=== PATIENT | female | born 1985 | race Caucasian/White ===

== ENCOUNTER → 2018-01-25 | Outpatient (CLI) | payer OTHER ==
[2018-01-25 08:41] LABS: GLUCOSE, FASTING 93 MG/DL (LESS THAN 95)
[2018-01-25 09:40] LABS: 1 HR GLUCOSE 186 MG/DL (LESS THAN 180)
[2018-01-25 10:30] LABS: 2 HR GLUCOSE 130 MG/DL (LESS THAN 155)
[2018-01-25 11:22] LABS: 3 HR GLUCOSE 122 MG/DL (LESS THAN 140)
== END ==
LOC: M LAB 07:38
DX: Z34.82 Encounter for supervision of other normal pregnancy, second trimester (principal)
CPT/HCPCS: 82951

== ENCOUNTER → 2018-03-07 | Outpatient (REF) | payer OTHER | LOC: M LAB REF 17:25 | DX: Z34.83 Encounter for supervision of other normal pregnancy, third trimester (principal); Z3A.00 Weeks of gestation of pregnancy not specified ==

== ENCOUNTER → 2018-03-13 | Outpatient (CLI) | payer OTHER ==
[2018-03-16 00:06] LABS: ANTI PARVO VIRUS LEVEL IGG 5.3 index (0.0-0.8); ANTI PARVO VIRUS LEVEL IgM 0.2 index (0.0-0.8)
== END ==
LOC: M SMT 13:34
DX: Z34.83 Encounter for supervision of other normal pregnancy, third trimester (principal)

== ENCOUNTER 2018-04-10 15:11 | Inpatient (IN) | payer OTHER ==
[2018-04-10 16:45] LABS: HEMATOCRIT 36.3 % (36.0-47.0); HEMOGLOBIN 12.6 g/dl (12.0-15.5); MEAN CORPUSCULAR HEMOGLOBIN 29.1 pg (27.0-33.0); MEAN CORPUSCULAR HGB CONC 34.7 g/dl (32.0-36.5); MEAN CORPUSCULAR VOLUME 83.8 fl (80.0-96.0); PLATELET COUNT, AUTOMATED 291 10^3/uL (150-450); RED BLOOD COUNT 4.33 10^6/uL (4.00-5.40); RED CELL DISTRIBUTION WIDTH 12.5 % (11.5-14.5); WHITE BLOOD COUNT 12.4 10^3/uL (4.0-10.0)
[2018-04-10] MEDS: miSOPROStol 50 MCG 1/2 TAB (S0191) PO ×2 (17:40→20:00)
[2018-04-11] MEDS: miSOPROStol 50 MCG 1/2 TAB (S0191) PO ×4 (04:00→12:06)
[2018-04-11] MEDS: MOM 30ML SUSPENSION UDC PO (10:01)
[2018-04-11] MEDS: LACTATED RINGER'S 1000 ML IV (12:45)
[2018-04-11] MEDS: LR 1,000 ML IV (18:46)
[2018-04-11] MEDS: OXYTOCIN DRIP 30 UNITS in APPROPRIATE DILUENT 1 EA IV (18:47)
[2018-04-11] MEDS ORDERED: FENTANYL 2MCG/ML ROPIVACAINE 0.2% IN 0.9% NACL 200ML IVBAG As Ordered (22:12)
[2018-04-11] MEDS ORDERED: NALOXONE INJ 0.4 MG/1 ML VIAL (J2310) IV (23:00)
[2018-04-11] MEDS ORDERED: diphenhydrAMINE INJ 50MG/ML VIAL (J1200) IV (23:00)
[2018-04-11] MEDS ORDERED: EPIDURAL COMMENT XX (23:00)
[2018-04-11] MEDS ORDERED: LACTATED RINGER'S 1000 ML IV (23:00)
[2018-04-11] MEDS ORDERED: REFRIGERATOR IV KEYS XX (23:00)
[2018-04-11] MEDS ORDERED: EPIDURAL/PCA KEYS XX (23:00)
[2018-04-11] MEDS ORDERED: ONDANSETRON 4MG/2ML VIAL (J2405) IV (23:00)
[2018-04-11] MEDS ORDERED: FENTANYL/ROPIVACAINE/NACL BAG 200 ML EPIDURAL (23:00)
[2018-04-12] MEDS: ePHEDrine SULFATE 25 MG/5 ML(5MG/ML) SYRINGE IV (00:32)
[2018-04-12] MEDS ORDERED: BICITRA 30ML SOLN UDC As Ordered (18:56)
[2018-04-12] MEDS ORDERED: ceFAZolin 2 GM/D5W 50 ML IV BAG (J0690 PER 500MG) As Ordered (18:56)
[2018-04-12 19:20] LABS: HEMATOCRIT 38.7 % (36.0-47.0); HEMOGLOBIN 12.8 g/dl (12.0-15.5); MEAN CORPUSCULAR HEMOGLOBIN 28.6 pg (27.0-33.0); MEAN CORPUSCULAR HGB CONC 33.1 g/dl (32.0-36.5); MEAN CORPUSCULAR VOLUME 86.6 fl (80.0-96.0); PLATELET COUNT, AUTOMATED 254 10^3/uL (150-450); RED BLOOD COUNT 4.47 10^6/uL (4.00-5.40); WHITE BLOOD COUNT 17.7 10^3/uL (4.0-10.0)
[2018-04-12] MEDS ORDERED: ONDANSETRON 4MG/2ML VIAL (J2405) IV ×3 (19:51→21:00)
[2018-04-12] MEDS ORDERED: METOCLOPRAMIDE INJ 10MG/2ML VIAL (J2765) IV ×2 (19:51→21:00)
[2018-04-12] MEDS ORDERED: NALOXONE INJ 0.4 MG/1 ML VIAL (J2310) IV ×2 (19:51)
[2018-04-12] MEDS ORDERED: NALBUPHINE HCL 10 MG/ML AMP (J2300) IV ×2 (19:51→21:00)
[2018-04-12] MEDS ORDERED: OXYTOCIN INJ 10 UNITS/ML VIAL (J2590) As Ordered (20:11)
[2018-04-12] MEDS ORDERED: MORPHINE PRES-FREE INJ 10 MG/10 ML VIAL (J2274) As Ordered (20:11)
[2018-04-12] MEDS ORDERED: ONDANSETRON 4MG/2ML VIAL (J2405) As Ordered (20:11)
[2018-04-12] MEDS ORDERED: KETOROLAC 60 MG/2 ML VIAL (J1885) As Ordered (20:11)
[2018-04-12] MEDS ORDERED: dexameTHASONE 4 MG/ML 1ML VIAL (J1100) As Ordered (20:11)
[2018-04-12] MEDS: LR 1,000 ML IV ×2 (20:40→21:00)
[2018-04-12] MEDS ORDERED: MEASLES,MUMPS,RUBELLA VACCINE INJ (MMR-II) (90707) SC (20:45)
[2018-04-12] MEDS ORDERED: PERCOCET 5MG/325MG TAB PO ×2 (20:45)
[2018-04-12] MEDS ORDERED: RHOGAM 300 MCG (1500 IU) INJ (J2790) IM (20:45)
[2018-04-12] MEDS ORDERED: MEPERIDINE INJ 25 MG/ML VIAL (J2175) IV (21:00)
[2018-04-12] MEDS ORDERED: fentaNYL 100 MCG/2 ML INJECTION (J3010) IV (21:00)
[2018-04-13] MEDS: KETOROLAC 30 MG/ML VIAL (J1885) IV ×3 (02:27→15:49)
[2018-04-13] MEDS: LR 1,000 ML IV ×4 (04:40→19:36)
[2018-04-13 06:55] LABS: HEMOGLOBIN 11.2 g/dl (12.0-15.5); MEAN CORPUSCULAR HEMOGLOBIN 29.1 pg (27.0-33.0); MEAN CORPUSCULAR HGB CONC 33.9 g/dl (32.0-36.5); MEAN CORPUSCULAR VOLUME 85.7 fl (80.0-96.0); PLATELET COUNT, AUTOMATED 250 10^3/uL (150-450); RED BLOOD COUNT 3.85 10^6/uL (4.00-5.40); RED CELL DISTRIBUTION WIDTH 12.8 % (11.5-14.5); WHITE BLOOD COUNT 16.9 10^3/uL (4.0-10.0)
[2018-04-13] MEDS: PRENATAL VITAMINS CHEWABLE TABLET PO (08:21)
[2018-04-13] MEDS: DOCUSATE SODIUM 100 MG CAP PO (21:41)
[2018-04-13] MEDS: IBUPROFEN 800 MG TAB PO (21:41)
[2018-04-14] MEDS: IBUPROFEN 800 MG TAB PO (06:24)
[2018-04-14] MEDS: PRENATAL VITAMINS CHEWABLE TABLET PO (07:56)
[2018-04-14] MEDS: LR 1,000 ML IV (12:40)
== END 2018-04-14 13:25 | disposition home or self-care (01) | DRG 766 ==
LOC: M LDI 15:11 → M OBS 04-12 22:15
PROVIDERS: Obstetrics & Gynecology
PROC: 10D00Z1 Extraction of Products of Conception, Low, Open Approach (ICD-10-PCS; principal; 2018-04-12 07:18)
PROC: 3E0P7GC Introduction of Other Therapeutic Substance into Female Reproductive, Via Natural or Artificial Opening (ICD-10-PCS; 2018-04-12 19:38)
PROC: 10907ZC Drainage of Amniotic Fluid, Therapeutic from Products of Conception, Via Natural or Artificial Opening (ICD-10-PCS; 2018-04-12 19:38)
DX: O48.0 Post-term pregnancy (principal); Z3A.41 41 weeks gestation of pregnancy; O62.0 Primary inadequate contractions; Z37.0 Single live birth

== ENCOUNTER → 2018-07-17 | Outpatient (CLI) | payer OTHER | LOC: M WUC 14:40 | DX: R06.2 Wheezing (principal); J20.9 Acute bronchitis, unspecified | CPT/HCPCS: 71046 ==

== ENCOUNTER → 2019-06-18 | Outpatient (REF) | payer OTHER ==
[~2019-06-18] MED LIST: IBUP-1114 PO; OXYC1TAB23 PO; TUMS500C PO
[2019-06-20 14:07] LABS: HPV HYBRID CAPTURE II Negative (Negative)
== END ==
LOC: M LAB REF 13:13
PROVIDERS: ATTEND Specialist
DX: Z12.4 Encounter for screening for malignant neoplasm of cervix (principal)
CPT/HCPCS: 87624; G0123

== ENCOUNTER → 2020-06-23 | Outpatient (REF) | payer OTHER | LOC: M SFHCWAGY 10:23 | PROVIDERS: ATTEND Specialist | DX: Z12.4 Encounter for screening for malignant neoplasm of cervix (principal) | CPT/HCPCS: 87624; G0123 ==

== ENCOUNTER → 2021-10-19 | Outpatient (REF) | payer OTHER | LOC: M SFHCWAGY 10:18 | PROVIDERS: ATTEND Specialist | DX: R87.610 Atypical squamous cells of undetermined significance on cytologic smear of cervix (ASC-US) (principal); Z12.4 Encounter for screening for malignant neoplasm of cervix ==

== ENCOUNTER → 2023-10-10 | Outpatient (CLI) | payer OTHER ==
[2023-10-10 09:30] LABS: BASO # 0.1 10^3/uL (0.0-0.2); BASO % 0.8 % (0.0-1.0); EOS # 0.2 10^3/uL (0.0-0.5); EOS % 2.6 % (0.0-3.0); HEMATOCRIT 42.7 % (36.0-47.0); HEMOGLOBIN 14.6 g/dl (12.0-15.5); LYMPH # 2.6 10^3/uL (1.5-5.0); LYMPH % 33.2 % (24.0-44.0); MEAN CORPUSCULAR HEMOGLOBIN 29.3 pg (27.0-33.0); MEAN CORPUSCULAR HGB CONC 34.2 g/dl (32.0-36.5); MEAN CORPUSCULAR VOLUME 85.6 fl (80.0-96.0); MONO # 0.6 10^3/uL (0.0-0.8); MONO % 7.1 % (2.0-8.0); NEUTROPHILS # 4.3 10^3/uL (1.5-8.5); NEUTROPHILS % 55.8 % (36.0-66.0); PLATELET COUNT, AUTOMATED 328 10^3/uL (150-450); RED BLOOD COUNT 4.99 10^6/uL (4.00-5.40); WHITE BLOOD COUNT 7.7 10^3/uL (4.0-10.0)
[2023-10-10 09:41] LABS: HEMOGLOBIN A1c 5.5 % (4.0-6.0)
[2023-10-10 10:05] LABS: ALBUMIN 4.1 G/DL (3.2-5.2); ALKALINE PHOSPHATASE 61 U/L (46-116); ALT/SGPT 34 U/L (7.0-40); AST/SGOT 16 U/L (<34); BILIRUBIN,TOTAL 0.5 MG/DL (0.3-1.2); BLOOD UREA NITROGEN 11 MG/DL (9-23); CALCIUM LEVEL 9.1 MG/DL (8.5-10.1); CARBON DIOXIDE LEVEL 30 MMOL/L (20-31); CHLORIDE LEVEL 104 MMOL/L (98-107); CHOLESTEROL LEVEL 224 MG/DL (<200); CHOLESTEROL RISK RATIO 5.24 (<5); CREATININE FOR GFR 0.64 MG/DL (0.55-1.30); GLOMERULAR FILTRATION RATE > 60.0 (>58); GLUCOSE, FASTING 97 MG/DL (60-100); HDL CHOLESTEROL 42.7 MG/DL (>40); LDL CHOLESTEROL 154.3 MG/DL (<100); NON-HDL-C 181.3 MG/DL; POTASSIUM SERUM 3.9 MMOL/L (3.5-5.1); SODIUM LEVEL 138 MMOL/L (136-145); THYROID STIMULATING HORMONE 2.483 uIU/ML (0.55-4.78); TOTAL PROTEIN 7.3 G/DL (5.7-8.2); TRIGLYCERIDES LEVEL 135 MG/DL (<150)
[2023-10-10 10:07] LABS: FOLATE 18.09 NG/ML (>5.4); TOTAL 25(OH) VITAMIN D 26.3 NG/ML (20.0-100.0); VITAMIN B12 LEVEL 823 PG/ML (211-911)
== END ==
LOC: M WUC 08:19
PROVIDERS: ATTEND Nurse Practitioner Adult Health
DX: M54.50 Low back pain, unspecified (principal); G57.11 Meralgia paresthetica, right lower limb; Z13.1 Encounter for screening for diabetes mellitus; R53.83 Other fatigue

== ENCOUNTER → 2025-08-15 | Outpatient (REF) | payer OTHER ==
[2025-08-19 14:15] LABS: HPV APTIMA Not Detected (Not Detected)
== END ==
LOC: M PLALAB 14:42
PROVIDERS: ATTEND Student in an Organized Health Care Education/Training Program
DX: Z12.4 Encounter for screening for malignant neoplasm of cervix (principal)
CPT/HCPCS: 87624; G0123